=== PATIENT | male | born 1960 | race Caucasian/White ===

== ENCOUNTER 2023-08-26 12:33 | Inpatient (IN) | payer MEDICAID ==
[~2023-08-26] VITALS: Ht 170.2 cm; Wt 77.7 kg
[2023-08-26 13:54] LABS: ALANINE AMINOTRANSFERASE 24 U/L (12-78); ALBUMIN 3.7 G/DL (3.4-5.0); ALBUMIN/GLOBULIN RATIO 0.9 (1.1-1.5); ALKALINE PHOSPHATASE 80 IU/L (46-116); ANION GAP 12 (8-16); ASPARTATE AMINO TRANSFERASE 29 U/L (10-37); BASOPHILS # (AUTO) 0.1 X10'3 (0-0.2); BASOPHILS % (AUTO) 1.5 % (0-1); BILIRUBIN,TOTAL 0.3 MG/DL (0.1-1.0); BLOOD UREA NITROGEN 9 MG/DL (7-18); BUN/CREATININE RATIO 13.2 (10.0-20.0); CALCIUM 8.8 MG/DL (8.5-10.1); CHLORIDE 106 MMOL/L (99-107); CREATININE 0.68 MG/DL (0.60-1.10); EOSINOPHILS # (AUTO) 0.3 X10'3 (0-0.9); EOSINOPHILS % (AUTO) 3.8 % (0-6); GLUCOSE 101 MG/DL (70-104); HEMATOCRIT 48.4 % (42.0-52.0); HEMOGLOBIN 16.4 g/dl (14.0-17.9); LYMPHOCYTES # (AUTO) 3.5 X10'3 (1.1-4.8); MEAN CORPUSCULAR HEMOGLOBIN 34.7 PG (27.0-31.0); MEAN CORPUSCULAR HGB CONC 33.8 g/dL (33.0-36.5); MEAN CORPUSCULAR VOLUME 102.6 FL (78-98); MEAN PLATELET VOLUME 8.2 FL (7.4-10.4); MONOCYTES # (AUTO) 0.5 X10'3 (0-0.9); MONOCYTES % (AUTO) 5.9 % (2-12); NEUTROPHILS # (AUTO) 4.5 X10'3 (1.8-7.7); NEUTROPHILS % (AUTO) 49.8 % (42-75); PLATELET COUNT 297 X10'3 (140-440); POTASSIUM 3.7 MMOL/L (3.5-5.1); RED BLOOD COUNT 4.72 X10'6 (4.70-6.10); RED CELL DISTRIBUTION WIDTH 15.3 % (11.5-14.5); SODIUM 147 MMOL/L (135-145); TOTAL CARBON DIOXIDE 29.5 MMOL/L (24-32); eCRCL 105 ML/MIN; eGFR > 90 ML/MIN
[2023-08-26 14:09] LABS: PRO BRAIN NATRIURETIC PEPTIDE < 30 PG/ML (0-125)
[2023-08-26] MEDS ORDERED: iohexol 300mg/ml 100ml inj. ONE (14:41)
[2023-08-26 14:51] LABS: ETHANOL 336 MG/DL (<10)
[2023-08-26] MEDS ORDERED: thiamine 100mg/ml 2ml inj. IV STA (16:38)
[2023-08-26] MEDS ORDERED: folic acid 1mg/0.2ml inj IV STA (16:38)
[2023-08-26] MEDS ORDERED: LORazepam 2 mg/ml vial IV ONE (17:15)
[2023-08-26] MEDS ORDERED: normal saline 1000ml 1,000 ML IV ONE (17:15)
[2023-08-26] MEDS ORDERED: LORazepam 2 mg/ml vial IV STA (21:34)
[2023-08-26] MEDS: LORazepam 2 mg/ml vial IV PRN (23:17)
[2023-08-27] VITALS (8 sets, daily range): BP systolic 115–143; BP diastolic 75–96; PULSE 93–126; RESP 16–22; TEMP 97.8–98.9; O2SAT 94–98
[2023-08-27] MEDS: LORazepam 2 mg/ml vial IV PRN ×4 (00:42→19:56)
[2023-08-27] MEDS ORDERED: ondansetron/PF 4mg/2ml inj IV PRN (00:50)
[2023-08-27] MEDS ORDERED: acetaminophen 325mg tablet PO PRN ×2 (00:50)
[2023-08-27] MEDS ORDERED: acetaminophen 650mg rectal suppository RC PRN (00:50)
[2023-08-27] MEDS ORDERED: metoclopramide 5 mg/ml inj IV PRN (00:50)
[2023-08-27] MEDS ORDERED: mag hydrox/Alum hydrox/simeth 30ml oral suspension PO PRN (00:50)
[2023-08-27] MEDS ORDERED: magnesium hydroxide 30ml (MOM) UD suspension PO PRN (00:50)
[2023-08-27] MEDS ORDERED: ondansetron 4mg rapidly disintigrating tab PO PRN (00:50)
[2023-08-27] MEDS ORDERED: bisacodyl 10mg suppository rectal RC PRN (00:50)
[2023-08-27] MEDS ORDERED: morphine 2 MG/ML inj. syringe IV PRN (00:50)
[2023-08-27] MEDS ORDERED: diphenhydrAMINE 25mg capsule PO PRN (00:50)
[2023-08-27] MEDS ORDERED: diphenhydrAMINE 50 mg/ml inj IV PRN (00:50)
[2023-08-27] MEDS ORDERED: haloperidol lactate 5mg/ml inj IM PRN (00:55)
[2023-08-27] MEDS ORDERED: dextrose 50%-water 50ml dispensing syringe IV PRN (00:55)
[2023-08-27] MEDS ORDERED: LORazepam 2 mg/ml vial IV PRN ×2 (00:55)
[2023-08-27] MEDS ORDERED: ipratropium/albuterol 3ml nebule NEB PRN (01:10)
[2023-08-27] MEDS: dextrose 5%-1/2 normal saline 1,000 ML IV SCH ×3 (01:26→20:04)
[2023-08-27 01:48] LABS: BILIRUBIN,URINE NEGATIVE (Neg); CLARITY,URINE SLIGHTLY CLOUDY (Clear); COLOR,URINE YELLOW (Yellow); GLUCOSE, URINE NEGATIVE (Neg); KETONES,URINE 15 mg/dl (Neg); LEUKOCYTE ESTERASE ,URINE NEGATIVE (Neg); OCCULT BLOOD,URINE MODERATE (Neg); PROTEIN,URINE NEGATIVE (Neg); UROBILINOGEN,URINE 0.2 E.U/dL (0.2-1.0)
[2023-08-27 02:13] LABS: URINE AMPHETAMINE SCREEN NEGATIVE (Neg); URINE BARBITUATE SCREEN NEGATIVE (Neg); URINE BENZODIAZEPINES SCREEN NEGATIVE (Neg); URINE CANNABINOID SCREEN NEGATIVE (Neg); URINE COCAINE SCREEN NEGATIVE (Neg); URINE METHADONE SCREEN NEGATIVE (Neg); URINE OPIATE SCREEN NEGATIVE (Neg); URINE PHENCYCLIDINE SCREEN NEGATIVE (Neg)
[2023-08-27 02:24] LABS: UA COLLECTION TYPE CLN CATCH MIDSTREAM
[2023-08-27 02:25] LABS: NITRITES, URINE NEGATIVE (Neg)
[2023-08-27 02:26] LABS: BACTERIA,URINE 1+ /HPF (Neg); RBC,URINE TNTC /HPF (0-2); SQUAMOUS EPITHELIAL CELL,UR FEW /LPF (FEW); TRANSITIONAL EPI CELLS,URINE FEW /HPF; WBC,URINE 0-4 /HPF (0-4)
[2023-08-27 02:35] LABS: HEMOGLOBIN A1C 5.1 % (4.5-6.2)
[2023-08-27 02:36] LABS: APTT 28 SECONDS (22-32); PROTHROMBIN TIME 10.9 SECONDS (9.0-12.0)
[2023-08-27 02:45] LABS: CREATINE KINASE 64 U/L (39-308); LIPASE 24 U/L (16-77); PHOSPHORUS 3.4 MG/DL (2.3-4.5); THYROID STIMULATING HORMONE 1.99 ulU/ml (0.34-4.50)
[2023-08-27] MEDS: pantoprazole 40mg Tablet.DR PO SCH (09:34)
[2023-08-27] MEDS: heparin, porcine 5000 units/ml vial SQ SCH ×2 (09:36→19:55)
[2023-08-27] MEDS: docusate sod 100mg capsule PO SCH ×2 (09:37→20:00)
[2023-08-27] MEDS: azithromycin/NS 500mg/250ml 250 ML IV SCH (10:04)
[2023-08-27] MEDS: thiamine 100mg/ml 2ml inj. IV SCH ×3 (13:00→21:46)
[2023-08-27] MEDS ORDERED: tamsulosin 0.4mg capsule PO ONE (13:25)
[2023-08-27] MEDS ORDERED: LidoCAINE 2% Topical Jelly 11mL syringe MM ONE (14:15)
[2023-08-27] MEDS: HYDROcodone/acetaminophen 5mg/325mg tablet PO PRN ×2 (14:49→19:55)
[2023-08-27] MEDS: folic acid 1mg/0.2ml inj IV SCH (17:46)
[2023-08-27] MEDS ORDERED: atenolol 50mg tablet PO SCH (19:55)
[2023-08-27] MEDS: atenolol 50mg tablet PO SCH (21:46)
[2023-08-28] VITALS (9 sets, daily range): BP systolic 122–146; BP diastolic 84–93; PULSE 73–96; RESP 14–26; TEMP 97.2–98.5; O2SAT 94–98
[2023-08-28] MEDS: HYDROcodone/acetaminophen 5mg/325mg tablet PO PRN ×4 (00:11→20:24)
[2023-08-28 07:15] LABS: BASOPHILS # (AUTO) 0.1 X10'3 (0-0.2); EOSINOPHILS # (AUTO) 0.5 X10'3 (0-0.9); EOSINOPHILS % (AUTO) 5.5 % (0-6); HEMATOCRIT 41.4 % (42.0-52.0); LYMPHOCYTES # (AUTO) 2.4 X10'3 (1.1-4.8); LYMPHOCYTES % (AUTO) 27.6 % (21-51); MEAN CORPUSCULAR HEMOGLOBIN 34.7 PG (27.0-31.0); MEAN CORPUSCULAR VOLUME 102.2 FL (78-98); MEAN PLATELET VOLUME 9.5 FL (7.4-10.4); MONOCYTES # (AUTO) 0.9 X10'3 (0-0.9); MONOCYTES % (AUTO) 10.7 % (2-12); NEUTROPHILS # (AUTO) 4.9 X10'3 (1.8-7.7); NEUTROPHILS % (AUTO) 55.2 % (42-75); PLATELET COUNT 247 X10'3 (140-440); RED BLOOD COUNT 4.05 X10'6 (4.70-6.10); RED CELL DISTRIBUTION WIDTH 14.9 % (11.5-14.5); WHITE BLOOD COUNT 8.9 X10'3 (4.5-11.0)
[2023-08-28] MEDS: thiamine 100mg/ml 2ml inj. IV SCH ×3 (08:53→20:25)
[2023-08-28] MEDS: docusate sod 100mg capsule PO SCH (08:53)
[2023-08-28] MEDS: heparin, porcine 5000 units/ml vial SQ SCH ×2 (08:54→20:25)
[2023-08-28] MEDS: pantoprazole 40mg Tablet.DR PO SCH (08:55)
[2023-08-28] MEDS: atenolol 50mg tablet PO SCH (08:55)
[2023-08-28] MEDS: azithromycin/NS 500mg/250ml 250 ML IV SCH (09:00)
[2023-08-28] MEDS: dextrose 5%-1/2 normal saline 1,000 ML IV SCH (11:34)
[2023-08-28 12:01] LABS: ALANINE AMINOTRANSFERASE 18 U/L (12-78); ALBUMIN 3.1 G/DL (3.4-5.0); ALBUMIN/GLOBULIN RATIO 0.9 (1.1-1.5); ALKALINE PHOSPHATASE 58 IU/L (46-116); ANION GAP 9 (8-16); ASPARTATE AMINO TRANSFERASE 23 U/L (10-37); BILIRUBIN,TOTAL 1.2 MG/DL (0.1-1.0); BLOOD UREA NITROGEN 4 MG/DL (7-18); BUN/CREATININE RATIO 5.8 (10.0-20.0); CALCIUM 8.5 MG/DL (8.5-10.1); CHLORIDE 104 MMOL/L (99-107); CHOL/HDL RATIO 2.5 (0.00-4.99); CHOLESTEROL 218 MG/DL (0-200); CREATININE 0.69 MG/DL (0.60-1.10); GLUCOSE 97 MG/DL (70-104); HDL CHOLESTEROL 87 MG/DL (35-60); LDL CHOLESTEROL 110 MG/DL (50-100); POTASSIUM 3.4 MMOL/L (3.5-5.1); SODIUM 140 MMOL/L (135-145); TOTAL CARBON DIOXIDE 26.8 MMOL/L (24-32); TOTAL PROTEIN 6.7 G/DL (6.4-8.2); TRIGLYCERIDES 80 MG/DL (20-135); eCRCL 104 ML/MIN; eGFR > 90 ML/MIN
[2023-08-28] MEDS: LORazepam 2 mg/ml vial IV PRN (14:56)
[2023-08-28] MEDS: folic acid 1mg/0.2ml inj IV SCH (16:14)
[2023-08-28] MEDS ORDERED: LORazepam 2 mg/ml vial IV PRN (16:40)
[2023-08-28] MEDS ORDERED: morphine 2 MG/ML inj. syringe IV PRN (16:40)
[2023-08-28] MEDS: temazepam 15mg capsule PO PRN (20:24)
[2023-08-28] MEDS: tamsulosin 0.4mg capsule PO SCH (20:24)
[2023-08-29] VITALS (9 sets, daily range): BP systolic 113–138; BP diastolic 76–105; PULSE 77–105; RESP 16–21; TEMP 97.1–98.9; O2SAT 93–98
[2023-08-29] MEDS: dextrose 5%-1/2 normal saline 1,000 ML IV SCH ×3 (01:35→21:32)
[2023-08-29 07:03] LABS: BASOPHILS # (AUTO) 0.1 X10'3 (0-0.2); BASOPHILS % (AUTO) 0.6 % (0-1); EOSINOPHILS # (AUTO) 0.6 X10'3 (0-0.9); EOSINOPHILS % (AUTO) 5.5 % (0-6); HEMATOCRIT 42.5 % (42.0-52.0); HEMOGLOBIN 14.5 g/dl (14.0-17.9); LYMPHOCYTES # (AUTO) 3.5 X10'3 (1.1-4.8); LYMPHOCYTES % (AUTO) 30.1 % (21-51); MEAN CORPUSCULAR HEMOGLOBIN 34.8 PG (27.0-31.0); MEAN CORPUSCULAR HGB CONC 34.1 g/dL (33.0-36.5); MEAN PLATELET VOLUME 9.8 FL (7.4-10.4); MONOCYTES # (AUTO) 0.9 X10'3 (0-0.9); NEUTROPHILS # (AUTO) 6.6 X10'3 (1.8-7.7); NEUTROPHILS % (AUTO) 55.8 % (42-75); PLATELET COUNT 220 X10'3 (140-440); RED BLOOD COUNT 4.16 X10'6 (4.70-6.10); RED CELL DISTRIBUTION WIDTH 14.6 % (11.5-14.5); WHITE BLOOD COUNT 11.8 X10'3 (4.5-11.0)
[2023-08-29 07:19] LABS: ALANINE AMINOTRANSFERASE 21 U/L (12-78); ALBUMIN 3.2 G/DL (3.4-5.0); ALBUMIN/GLOBULIN RATIO 0.9 (1.1-1.5); ALKALINE PHOSPHATASE 61 IU/L (46-116); ANION GAP 9 (8-16); ASPARTATE AMINO TRANSFERASE 19 U/L (10-37); BLOOD UREA NITROGEN 4 MG/DL (7-18); BUN/CREATININE RATIO 7.7 (10.0-20.0); CALCIUM 8.8 MG/DL (8.5-10.1); CHLORIDE 103 MMOL/L (99-107); CREATININE 0.52 MG/DL (0.60-1.10); GLUCOSE 94 MG/DL (70-104); POTASSIUM 3.2 MMOL/L (3.5-5.1); SODIUM 139 MMOL/L (135-145); TOTAL CARBON DIOXIDE 26.7 MMOL/L (24-32); TOTAL PROTEIN 6.9 G/DL (6.4-8.2); eCRCL 138 ML/MIN; eGFR > 90 ML/MIN
[2023-08-29] MEDS: atenolol 50mg tablet PO SCH (09:34)
[2023-08-29] MEDS: pantoprazole 40mg Tablet.DR PO SCH (09:34)
[2023-08-29] MEDS: thiamine 100mg/ml 2ml inj. IV SCH ×3 (09:34→21:29)
[2023-08-29] MEDS: heparin, porcine 5000 units/ml vial SQ SCH ×2 (09:36→21:30)
[2023-08-29] MEDS: azithromycin/NS 500mg/250ml 250 ML IV SCH (10:29)
[2023-08-29] MEDS: HYDROcodone/acetaminophen 5mg/325mg tablet PO PRN ×3 (10:37→21:31)
[2023-08-29] MEDS ORDERED: magnesium 2GM in 50ml NS 50 ML IV PRN (16:15)
[2023-08-29] MEDS ORDERED: potassium Cl 40MEQ/1/2NS 520ml 520 ML IV PRN (16:15)
[2023-08-29] MEDS ORDERED: potassium Cl 20 mEq SR tablet PO PRN (16:15)
[2023-08-29] MEDS ORDERED: magnesium 4gm in 100ml NS 100 ML IV PRN (16:15)
[2023-08-29] MEDS ORDERED: magnesium Cl slow-release 64mg tablet PO PRN (16:15)
[2023-08-29] MEDS: K and/or MAG REPLACEMENT MC SCH (20:00)
[2023-08-29] MEDS: tamsulosin 0.4mg capsule PO SCH (21:30)
[2023-08-29] MEDS: potassium Cl 20 mEq SR tablet PO PRN (21:31)
[2023-08-29] MEDS: temazepam 15mg capsule PO PRN (21:31)
[2023-08-30] VITALS (7 sets, daily range): BP systolic 130–134; BP diastolic 74–85; PULSE 70–75; RESP 14–20; TEMP 97.4–97.7; O2SAT 95–98
[2023-08-30 06:25] LABS: BASOPHILS # (AUTO) 0.1 X10'3 (0-0.2); BASOPHILS % (AUTO) 0.9 % (0-1); EOSINOPHILS # (AUTO) 0.8 X10'3 (0-0.9); EOSINOPHILS % (AUTO) 8.6 % (0-6); HEMATOCRIT 41.2 % (42.0-52.0); HEMOGLOBIN 14.1 g/dl (14.0-17.9); LYMPHOCYTES % (AUTO) 34.5 % (21-51); MEAN CORPUSCULAR HGB CONC 34.2 g/dL (33.0-36.5); MEAN CORPUSCULAR VOLUME 102.3 FL (78-98); MEAN PLATELET VOLUME 8.9 FL (7.4-10.4); MONOCYTES % (AUTO) 11.4 % (2-12); NEUTROPHILS # (AUTO) 3.9 X10'3 (1.8-7.7); NEUTROPHILS % (AUTO) 44.6 % (42-75); PLATELET COUNT 211 X10'3 (140-440); RED BLOOD COUNT 4.03 X10'6 (4.70-6.10); RED CELL DISTRIBUTION WIDTH 14.6 % (11.5-14.5); WHITE BLOOD COUNT 8.8 X10'3 (4.5-11.0)
[2023-08-30 06:30] LABS: ALANINE AMINOTRANSFERASE 20 U/L (12-78); ALBUMIN 2.9 G/DL (3.4-5.0); ALBUMIN/GLOBULIN RATIO 0.8 (1.1-1.5); ALKALINE PHOSPHATASE 59 IU/L (46-116); ANION GAP 7 (8-16); ASPARTATE AMINO TRANSFERASE 22 U/L (10-37); BILIRUBIN,TOTAL 0.7 MG/DL (0.1-1.0); BLOOD UREA NITROGEN 11 MG/DL (7-18); BUN/CREATININE RATIO 16.7 (10.0-20.0); CALCIUM 8.9 MG/DL (8.5-10.1); CHLORIDE 104 MMOL/L (99-107); CREATININE 0.66 MG/DL (0.60-1.10); GLUCOSE 97 MG/DL (70-104); POTASSIUM 3.6 MMOL/L (3.5-5.1); SODIUM 138 MMOL/L (135-145); TOTAL CARBON DIOXIDE 27.5 MMOL/L (24-32); TOTAL PROTEIN 6.7 G/DL (6.4-8.2); eCRCL 109 ML/MIN; eGFR > 90 ML/MIN
[2023-08-30] MEDS: K and/or MAG REPLACEMENT MC SCH ×2 (08:00→20:00)
[2023-08-30] MEDS: HYDROcodone/acetaminophen 5mg/325mg tablet PO PRN ×3 (08:59→22:18)
[2023-08-30] MEDS: atenolol 50mg tablet PO SCH (09:00)
[2023-08-30] MEDS: azithromycin/NS 500mg/250ml 250 ML IV SCH (09:01)
[2023-08-30] MEDS: pantoprazole 40mg Tablet.DR PO SCH (09:03)
[2023-08-30] MEDS: heparin, porcine 5000 units/ml vial SQ SCH ×2 (09:04→20:02)
[2023-08-30] MEDS ORDERED: ATEN50TA41 PO (09:38)
[2023-08-30] MEDS ORDERED: LEVO-65 PO (09:38)
[2023-08-30] MEDS ORDERED: FOLI1TAB27 PO (09:38)
[2023-08-30] MEDS ORDERED: thiamine tablet PO (09:38)
[2023-08-30] MEDS ORDERED: tamsulosin capsule PO (09:38)
[2023-08-30] MEDS: tamsulosin 0.4mg capsule PO SCH (20:02)
[2023-08-30] MEDS: temazepam 15mg capsule PO PRN (20:02)
[2023-08-30] MEDS: dextrose 5%-1/2 normal saline 1,000 ML IV SCH (20:04)
[2023-08-31 02:00] VITALS: BP 115/78; PULSE 85; RESP 18; TEMP 98; O2SAT 94
[2023-08-31 06:57] LABS: BASOPHILS # (AUTO) 0.1 X10'3 (0-0.2); BASOPHILS % (AUTO) 0.7 % (0-1); EOSINOPHILS # (AUTO) 0.7 X10'3 (0-0.9); EOSINOPHILS % (AUTO) 7.5 % (0-6); HEMATOCRIT 42.3 % (42.0-52.0); HEMOGLOBIN 14.2 g/dl (14.0-17.9); LYMPHOCYTES % (AUTO) 34.1 % (21-51); MEAN CORPUSCULAR HEMOGLOBIN 34.6 PG (27.0-31.0); MEAN CORPUSCULAR HGB CONC 33.6 g/dL (33.0-36.5); MEAN CORPUSCULAR VOLUME 102.9 FL (78-98); MEAN PLATELET VOLUME 8.7 FL (7.4-10.4); MONOCYTES # (AUTO) 0.9 X10'3 (0-0.9); MONOCYTES % (AUTO) 9.9 % (2-12); NEUTROPHILS # (AUTO) 4.2 X10'3 (1.8-7.7); NEUTROPHILS % (AUTO) 47.8 % (42-75); PLATELET COUNT 212 X10'3 (140-440); RED BLOOD COUNT 4.11 X10'6 (4.70-6.10); RED CELL DISTRIBUTION WIDTH 14.6 % (11.5-14.5); WHITE BLOOD COUNT 8.7 X10'3 (4.5-11.0)
[2023-08-31 07:00] VITALS: BP 109/66; PULSE 58; RESP 14; TEMP 97.2; O2SAT 97
[2023-08-31 07:12] LABS: ALANINE AMINOTRANSFERASE 21 U/L (12-78); ALBUMIN 3.1 G/DL (3.4-5.0); ALBUMIN/GLOBULIN RATIO 0.8 (1.1-1.5); ALKALINE PHOSPHATASE 57 IU/L (46-116); ANION GAP 8 (8-16); ASPARTATE AMINO TRANSFERASE 19 U/L (10-37); BILIRUBIN,TOTAL 0.5 MG/DL (0.1-1.0); BLOOD UREA NITROGEN 15 MG/DL (7-18); BUN/CREATININE RATIO 24.6 (10.0-20.0); CALCIUM 8.6 MG/DL (8.5-10.1); CHLORIDE 104 MMOL/L (99-107); CREATININE 0.61 MG/DL (0.60-1.10); GLUCOSE 98 MG/DL (70-104); POTASSIUM 3.4 MMOL/L (3.5-5.1); SODIUM 139 MMOL/L (135-145); TOTAL CARBON DIOXIDE 27.1 MMOL/L (24-32); TOTAL PROTEIN 6.8 G/DL (6.4-8.2); eCRCL 117 ML/MIN; eGFR > 90 ML/MIN
[2023-08-31] MEDS ORDERED: folic acid 1mg tablet PO SCH (08:00)
[2023-08-31] MEDS: K and/or MAG REPLACEMENT MC SCH (08:00)
[2023-08-31] MEDS ORDERED: thiamine 100mg tablet PO SCH (08:00)
[2023-08-31] MEDS: pantoprazole 40mg Tablet.DR PO SCH (08:08)
[2023-08-31] MEDS: potassium Cl 20 mEq SR tablet PO PRN (08:08)
[2023-08-31] MEDS: atenolol 50mg tablet PO SCH (08:09)
[2023-08-31] MEDS: heparin, porcine 5000 units/ml vial SQ SCH (08:09)
[2023-08-31] MEDS: azithromycin/NS 500mg/250ml 250 ML IV SCH (08:10)
[2023-08-31 11:00] VITALS: BP 98/60; PULSE 68; RESP 16; TEMP 97.2; O2SAT 95
[2023-08-31] MEDS: dextrose 5%-1/2 normal saline 1,000 ML IV SCH (11:04)
[2023-08-31] MEDS ORDERED: POTA-207 PO (11:31)
[2023-08-31] MEDS ORDERED: NALT50TA PO (11:31)
[2023-08-31 12:06] VITALS: PULSE 70; RESP 22; O2SAT 96
== END 2023-08-31 14:12 | disposition home health service (06) | DRG 52 ==
LOC: ER 12:33 → ED HOLD 08-27 00:52 → PCU 3S 08-27 07:47
PROVIDERS: ADMIT Family Medicine; ATTEND Internal Medicine
PROC: BW211ZZ Computerized Tomography (CT Scan) of Abdomen and Pelvis using Low Osmolar Contrast (ICD-10-PCS; principal; 2023-08-26)
DX: G92.9 Unspecified toxic encephalopathy (principal); E87.0 Hyperosmolality and hypernatremia; J18.9 Pneumonia, unspecified organism; J44.0 Chronic obstructive pulmonary disease with (acute) lower respiratory infection; N20.0 Calculus of kidney; E87.6 Hypokalemia; I10 Essential (primary) hypertension; K57.90 Diverticulosis of intestine, part unspecified, without perforation or abscess without bleeding; F10.239 Alcohol dependence with withdrawal, unspecified; F10.229 Alcohol dependence with intoxication, unspecified; Z87.891 Personal history of nicotine dependence; Z87.442 Personal history of urinary calculi
CPT/HCPCS: 36415; 70450; 71045; 71260; 72125; 74177; 80053; 80061; 80305; 80320; 81001; 82140; 82550; 82948; 83036; 83605; 83690; 83735; 83880; 84100; 84145; 84443; 84484; 85025; 85610; 85651; 85730; 87040; 93306; 94760; 97161; 97530; 99285; A4338; C1758; G0378; J0456; J1644; J2060; J2270; J3411; J3490; J7030; Q9967